=== PATIENT | male | born 2000 | race Two or more races ===

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

== ENCOUNTER 2021-03-18 01:00 | Emergency (ER) | payer OTHER, SELFPAY ==
[2021-03-18 01:11] VITALS: BP 130/66; PULSE 98; RESP 16; TEMP 36.9; O2SAT 95; BMI 25.0
--- NOTE | 2021-03-18 01:23 | ED_ITS ---
HPI - Abdominal Pain General Chief Complaint: Abdominal Pain Stated Complaint: food poisoning? Time Seen by Provider: 03/18/21 01:12 Source: patient Mode of arrival: ambulatory Limitations: no limitations History of Present Illness HPI narrative: 20-year-old male who presents emergency department for evaluation of abdominal pain, nausea and vomiting. The patient states that at 4:00 p.m. he ate a spicy, fish and potato dish that his mother had made for him. He states that he felt fine and then around 10:30 p.m. he a had a Shyann cheese steak with oconnell. Shortly after eating the Shyann cheese steak he began to feel ill. He states that he developed abdominal pain. He points to his epigastric area when asked to localize the pain . The pain pain was a constant, burning like sensation which was 3/10 at its worst. The pain eldridge then developed nausea and had 5 episodes of vomiting with no blood in the emesis. It is that he then began to get shaky all over, he felt lightheaded and dizzy, his face and neck got numb and hands began to cramp. The patient was then brought to the emergency department for evaluation. Related Data Previous Rx's Medication Instructions Recorded ondansetron 4 mg disintegrating 4 mg PO Q6H PRN 4 Days #20 tab 05/21/20 tablet ondansetron 4 mg disintegrating 4 mg PO Q6-8H PRN #14 tab 03/18/21 tablet Allergies Allergy/AdvReac Type Severity Reaction Status Date / Time No Known Allergies Allergy Verified 04/07/20 14:10 Review of Systems Review of Systems Yes all other systems are reviewed and are negative Physical Exam Vital Signs: Vital Signs: Last Vital Signs Temp 98.5 F 03/18/21 01:11 Pulse 98 03/18/21 01:11 Resp 16 03/18/21 01:11 BP 130/66 03/18/21 01:11 Pulse Ox 95 03/18/21 01:11 Body Mass Index 25.0 Const: General: cooperative and no acute distress Orientation/consciousness : oriented to person and oriented to place Limitations: no limitations HENMT: Head: Yes normal to inspection, Yes normocephalic and Yes atraumatic Ears: external ears normal General nose exam: Normal external nose present Face and sinus: Yes normal facial exam Mouth: Normal oral and palatal mucosa present Throat: Yes posterior oropharynx normal Eyes: General: appearance normal, both eyes and all related structures Pupils: Equal, round and reactive pupils present Neck: Neck: Yes normal visual inspection, Yes no lymphadenopathy, Yes trachea midline and Yes supple Chest: Chest palpation & inspection: normal inspection of the chest and normal palpation of entire chest wall Resp: Effort & Inspection: normal respiratory effort and able to speak in complete sentences Auscultation: clear to auscultation bilaterally Cardio: Rate: regular rate Rhythm: regular rhythm Heart sounds: S1 normal heart sound present, S2 normal heart sound present and no murmurs GI: Inspection: Yes normal to inspection Palpation (GI): Soft to palpation, Tenderness to palpation present (GI) in the epigastrum (Moderate) and no guard ing Auscultation: normal bowel sounds : General: Yes no CVA tenderness Back/Spine/Pelvis: Back: no CVA tenderness Skin: General skin exam: no rashes or lesions noted Neuro: General: oriented to person and oriented to place Cranial nerves: Yes CN's II-XII intact bilaterally and Yes Equal, round and reactive pupils present Cognition (Neuro): normal cognition Motor exam (neuro): 5/5 motor strength present throughout Extrem: General: Yes normal to inspection Psych: Appearance: grossly normal Speech and movement: Normal speech and movement present Affect: normal affect Attitude: cooperative Thought process: Normal thought process present Thought content: Normal thought content present Course Course Course Narrative: 20-year-old male who presents emergency department for evaluation of abdominal pain, nausea and vomiting that occurred around 10:30 p.m. after he ate a Shyann cheese steak with oconnell. The patient also developed numbness of his face, neck, lightheadedness, dizziness and cramping of his hands which is consistent with a hyperventilation/panic attack. Patient's vital signs were normal. Physical examination revealed epigastric tenderness. I ordered a CBC, CMP, lipase and urinalysis on the patient. The patient was treated with Toradol 30 mg IV, Zofran 4 mg IV normal saline IV x1 L. 0201: The patient did not receive his IV normal saline sent he requested that the IV be taken out after received the IV medications. He is feeling better. He was able to drink water without any vomiting. Patient's symptoms are consistent with gastritis and a panic attack. The patient will be discharged home. MDM - Abdominal Pain Lab Data Result diagrams: 03/18/21 01:32 03/18/21 01:32 Labs: Lab Results 03/18/21 03/18/21 Range/Units 01:32 01:32 WBC 6.3 (4.8-10.8) X10*3/uL RBC 4.84 (4.60-5.80) X10*6/uL Hgb 14.7 (14.0-18.0) g/dl Hct 42.8 (42-52) % MCV 88.4 (80-98) fL MCH 30.4 (27.0-33.0) pg MCHC 34.3 (31.0-36.0) g/dl RDW 11.8 (11.0-16.0) % Plt Count 180 (160-400) X10*3/uL MPV 9.7 (9.4-12.4) fL Immature Gran % (Auto) 0.2 (0.0-0.4) % Neut % (Auto) 73.4 H (45-73) % Lymph % (Auto) 16.9 L (20-40) % [place] % (Auto) 7.4 (2-11) % Eos % (Auto) 1.6 (0-4) % Baso % (Auto) 0.5 (0-2) % Lymph # (Auto) 1.1 L (1.2-4.9) X10*3/uL [place] # (Auto) 0.5 (0.1-1.2) X10*3/uL Eos # (Auto) 0.1 (0.0-0.4) X10*3/uL Baso # (Auto) 0.0 (0.0-0.2) X10*3/uL Abs Immat Gran (auto) 0.01 (0.00-0.03) X10*3/uL Absolute Neuts (auto) 4.7 (2.0-8.3) X10*3/uL Absolute Nucleated RBC 0.000 (0.0-0.012) X10*3/uL Nucleated RBC % (auto) 0.0 (0.0-0.2) /100WBC Sodium 139 (135-145) mmol/L Potassium 3.6 (3.3-5.1) mmol/L Chloride 103 (96-108) mmol/L Carbon Dioxide 27 (22-29) mmol/L Anion Gap 13 (12-20) BUN 13 (9-16) mg/dL Creatinine 1.13 (0.5-1.4) mg/dL Estim Creat Clear Calc 91.4 Estimated GFR > 60 Random Glucose 136 H D (60-115) mg/dL Calcium 9.7 (8.4-10.2) mg/dL Total Bilirubin 0.7 (0.0-1.0) mg/dL AST 21 D (5-37) U/L ALT 19 (0-40) U/L Alkaline Phosphatase 53 (39-117) U/L Total Protein 7.4 (6.5-8.0) g/dL Albumin 4.7 (3.5-5.0) g/dL Lipase 14 (8-78) U/L Discharge Plan Discharge Clinical Impression: Acute hyperventilation syndrome Gastritis Qualifiers: Gastritis type: unspecified gastritis Chronicity: acute Gastritis bleeding: without bleeding Qualified Code(s): K29.00 - Acute gastritis without bleeding Vomiting Qualifiers: Vomiting type: unspecified Vomiting Intractability: non-intractable Nausea presence: with nausea Qualified Code(s): R11.2 - Nausea with vomiting, unspecified Patient Disposition: Home, Self-Care Instructions: Hyperventilation (ED), Gastritis (ED) Additional Instructions: Your blood work was normal. Your symptoms are consistent with inflammation of your stomach (gastritis). You also had a panic attack/hyperventilation syndrome which caused you to feel lightheaded, dizzy, numb and gave you the cramping in your arms. Take Zofran ODT 4 mg pills, 1 pill dissolved in your mouth every 8 hours as needed for nausea and vomiting. Follow-up with your doctor in 2 days. Please return to the emergency department if your symptoms get worse or if you develop any symptoms that are concerning to you. Prescriptions: New ondansetron 4 mg tablet,disintegrating 4 mg PO Q6-8H PRN (Reason: nausea and vomiting) Qty: 14 RF: 0 No Action ondansetron 4 mg tablet,disintegrating 4 mg PO Q6H PRN (Reason: nausea and vomiting) 4 Days Qty: 20 RF: 0 PMFSH Past Medical History PMF Narrative: Past medical history: None. Past surgical history: None. Social history: The patient denies tobacco use. He denies alcohol use. The patient smokes 1 marijuana 1 to cigarette per day. He denies other drug use Medical History Healthy adult Social History Social History Alcohol intake: unknown Advance Directives: No Advance Directives Information Provided: Yes
[2021-03-18 01:35] LABS: MANUAL DIFF FLAG NO
[2021-03-18 01:36] LABS: Basophils Percent Auto 0.5 % (0-2); Eosinophils Absolute Auto 0.1 X10*3/uL (0.0-0.4); Eosinophils Percent Auto 1.6 % (0-4); Hematocrit 42.8 % (42-52); Hemoglobin 14.7 g/dl (14.0-18.0); Imm Gran Abs Auto 0.01 X10*3/uL (0.00-0.03); Imm Gran Pct Auto 0.2 % (0.0-0.4); Lymphocytes Absolute Auto 1.1 X10*3/uL (1.2-4.9); Lymphocytes Percent Auto 16.9 % (20-40); Mean Corpuscular HGB Conc 34.3 g/dl (31.0-36.0); Mean Corpuscular Hemoglobin 30.4 pg (27.0-33.0); Mean Corpuscular Volume 88.4 fL (80-98); Mean Platelet Volume 9.7 fL (9.4-12.4); Monocytes Absolute Auto 0.5 X10*3/uL (0.1-1.2); Monocytes Percent Auto 7.4 % (2-11); Neutrophils Absolute Auto 4.7 X10*3/uL (2.0-8.3); Neutrophils Percent Auto 73.4 % (45-73); Platelet Count 180 X10*3/uL (160-400); Red Blood Count 4.84 X10*6/uL (4.60-5.80); Red Cell Distribution Width 11.8 % (11.0-16.0); White Blood Count 6.3 X10*3/uL (4.8-10.8)
[2021-03-18] MEDS: ondansetron HCL 4 MG/2 ML VIAL IVPUSH (01:37)
[2021-03-18] MEDS: Ketorolac Tromethamine 15 MG/ML VIAL 30 MG IVPUSH (01:37)
[2021-03-18 01:52] LABS: Alanine Aminotransferase 19 U/L (0-40); Albumin Level 4.7 g/dL (3.5-5.0); Alkaline Phosphatase 53 U/L (39-117); Anion Gap 13 (12-20); Aspartate Amino Transferase 21 U/L (5-37); Bilirubin Total 0.7 mg/dL (0.0-1.0); Blood Urea Nitrogen 13 mg/dL (9-16); Calcium 9.7 mg/dL (8.4-10.2); Carbon Dioxide 27 mmol/L (22-29); Chloride 103 mmol/L (96-108); Creatinine Clr Calc Pharmacy 91.4; Estimated Glomerular Filt Rate > 60; Glucose Random 136 mg/dL (60-115); Lipase 14 U/L (8-78); Potassium 3.6 mmol/L (3.3-5.1); Sodium 139 mmol/L (135-145); Total Protein 7.4 g/dL (6.5-8.0)
[2021-03-18 02:00] VITALS: BP 106/67; PULSE 69; RESP 16; O2SAT 98
--- NOTE | 2021-03-18 02:06 | PC.NURSE ---
pt iv removed due to he is refusing iv fluid and the iv is painful. 2nd iv started and pt did not like that one either. provider at bedside medications received and ivf cancelled due to pt refusing.
== END 2021-03-18 02:24 | disposition home or self-care (01) ==
PROVIDERS: Emergency Provider Emergency Medicine Emergency Medical Services
DX: F45.8 Other somatoform disorders (principal); K29.00 Acute gastritis without bleeding; R11.2 Nausea with vomiting, unspecified
CPT/HCPCS: 36415; 80053; 83690; 85025; 96361; 96374; 96375; 99284; J1885; J2405

== ENCOUNTER 2024-12-01 23:46 | Emergency (ER) | payer OTHER, SELFPAY ==
--- NOTE | ~2024-12-01 | CT_ITS ---
CLINICAL HISTORY: diffuse abd pain, bloody diarrhea CT ABDOMEN AND PELVIS WITH CONTRAST Comparison: None provided Findings: No consolidation or effusion. No acute abnormalities in the solid organs. Tiny cyst or hemangioma in the right hepatic lobe. No large calcified gallstone. No urolithiasis. No AAA. There are numerous subcentimeter mesenteric lymph nodes throughout the abdomen. No bowel obstruction, ileus, pneumoperitoneum, or pneumatosis. No significant paracolic edema. The appendix measures 6.4-7.5 mm on axial image 476, series 4 and coronal image 46, series 7. The bones are intact. No free or loculated fluid collection. IMPRESSION: 1. Size criteria of the appendix suggests appendicitis in the appropriate clinical setting. No evidence for perforation or abscess. 2. Probable mesenteric adenitis. This document has been electronically signed by: Aleta Rowe DO on 12/02/2024 03:58:34
[2024-12-01 23:58] VITALS: BP 117/83; PULSE 65; RESP 16; TEMP 36.9; O2SAT 98; BMI 28.2
[2024-12-02 00:37] LABS: Hematocrit 43.1 % (42.0-52.0); Hemoglobin 15.1 g/dl (14.0-18.0); Imm Gran Abs Auto 0.00 X10*3/uL (0.00-0.03); Imm Gran Pct Auto 0.0 % (0.0-0.4); Lymphocytes Absolute Auto 1.1 X10*3/uL (1.2-4.9); MANUAL DIFF FLAG SCAN; Mean Corpuscular HGB Conc 35.0 g/dl (31.0-36.0); Mean Corpuscular Hemoglobin 30.2 pg (27.0-33.0); Mean Corpuscular Volume 86.2 fL (80.0-98.0); NRBC Abs Auto 0.000 X10*3/uL (0.0-0.012); NRBC Pct Auto 0.0 /100WBC (0.0-0.2); Platelet Count 155 X10*3/uL (160-400); Red Blood Count 5.00 X10*6/uL (4.60-5.80); SCAN SMEAR FLAG 1; White Blood Count 3.0 X10*3/uL (4.8-10.8)
[2024-12-02 00:51] LABS: Alanine Aminotransferase 30 U/L (0-40); Albumin Level 4.7 g/dL (3.5-5.0); Alkaline Phosphatase 56 U/L (39-117); Anion Gap 12 (12-20); Aspartate Amino Transferase 32 U/L (5-37); Blood Urea Nitrogen 14 mg/dL (9-16); Calcium 9.0 mg/dL (8.4-10.2); Carbon Dioxide 22 mmol/L (22-29); Chloride 107 mmol/L (96-108); Creatinine Clr Calc Pharmacy 94.8; Estimated Glomerular Filt Rate > 60; Lipase 28 U/L (8-78); Potassium 3.9 mmol/L (3.3-5.1); Sodium 137 mmol/L (135-145); Total Protein 7.6 g/dL (6.5-8.0)
[2024-12-02 01:09] VITALS: BP 121/80; RESP 18; TEMP 36.9
--- NOTE | 2024-12-02 02:23 | ED_ITS ---
HPI - Nausea/Vomiting/Diarrhea General Chief complaint: Nausea/Vomiting/Diarrhea Stated complaint: bleeding when urinating Time Seen by Provider: 12/02/24 02:10 Source: patient Mode of arrival: ambulatory Limitations: no limitations History of Present Illness ED Provider: Dr. Cailin Cox HPI Narrative: Patient comes to the emergency room complaining of diarrhea for 5-6 days. Patient states that he went to [place] with tn brittni montanez to celebrate their engagement, patient ate oysters. Patient states that since then he has been having bright red blood stool, denies rectal pain but now that he has been having so many bowel movements, the anal area hurts. Patient denies nausea or vomiting. Patient states that he feels a bit dry/dehydrated, states that he goes to the bathroom with large amount of diarrhea at least 5 times per day, up to 10 per day. Related Data Previous Rx's ?Medication ?Instructions ?Recorded ondansetron 4 mg disintegrating 4 mg PO Q6H PRN nausea and 05/21/20 tablet vomiting 4 days #20 tabs ondansetron 4 mg disintegrating 4 mg PO Q6-8H PRN naus ea and 03/18/21 tablet vomiting #14 tabs Allergies Allergy/AdvReac Type Severity Reaction Status Date / Time No Known Allergies Allergy Verified 12/02/24 00:02 Review of Systems 2 Review of Systems: Constitutional : No Weight loss, No Fever, No Chills, No Night Sweats, No Fatigue, No Malaise ENT/Mouth : No Hearing loss, No Ear Pain, No Nasal Congestion, No Sinus Pain, No Hoarseness, No sore throat, No Rhinorrhea, No Swallowing Difficulty Eyes: No Eye Pain, No Swelling, No Redness, No Foreign Body, No Discharge, No Vision Changes Cardiovascular : No Chest Pain, No SOB, No Dyspnea on Exertion, No Orthopnea, No Edema, No Palpitations Respiratory : No Cough, No Sputum, No Wheezing, No Smoke Exposure, No Dyspnea Gastrointestinal : No Nausea, No Vomiting, complaining of bloody diarrhea, diffuse abdominal discomfort Genitourinary : no irregular bleeding, No Dysuria, No Urinary Frequency, No Hematuria, No Urinary Incontinence, No Urgency, No Flank Pain, No Urinary Flow Changes, No Hesitancy Musculoskeletal : No joint pain, No Myalgias, No Joint Swelling Skin : No Skin Lesions, No rash Neuro : No Weakness, No Numbness, No Paresthesias, No Loss of Consciousness, No Dizziness, No Headache Psych : No Anxiety/Panic, No Depression, No SI/HI/AH/VH, No Social Issues, Heme/Lymph: No Bruising, No Bleeding,No Lymphadenopathy Endocrine : No Polyuria, No Polydipsia, No Temperature Intolerance [facility] Past Medical History Medical History Healthy adult Social History Social History Alcohol intake: never Patient Tobacco Use Status: Current everyday Tobacco user Substance Use Type: Marijuana Advance Directives: No Do you have a plan to hurt others: No Plan Physical Exam 2 Vital Signs: Vital Signs: Last Vital Signs Temp 98.5 F 12/02/24 01:09 Pulse 65 12/01/24 23:58 Resp 18 12/02/24 01:09 BP 121/80 12/02/24 01:09 Pulse Ox 98 12/01/24 23:58 O2 Del Method Room Air 12/01/24 23:58 BMI result Body Mass Index 28.2 Const: Other: Appearance: Alert. Oriented X3. No acute distress. Eyes: Pupils equal, round and reactive to light. ENT: Pharynx normal. Dry lips, dryish mucous membranes Neck: Normal inspection. Neck supple. No lymph nodes noted. No crepitus CVS: Normal heart rate and rhythm. Pulses normal. Normal S1 and S2 Respiratory: No respiratory distress. Breath sounds normal. No Wheezing. No rales Abdomen: Soft and mild discomfort to palpation in all quadrants, mostly cramping, no significant pain, no rebound or guarding, No rigidity. No distention. Digital rectal exam shows brown stool Skin: Skin warm and dry. Normal skin color. Normal skin turgor. Extremities: No lower extremity edema. No Lacerations. No Rash Neuro: Oriented X 3. No motor deficit. No sensory deficit. Moving all extremities. No slurred speech. CN 2 through 12 grossly intact Psych: calm, cooperative, normal affect Course Course Course Narrative: Patient receiving IV fluids, p.o. loperamide. CT scan pending. Medications Administered Discontinued Medications Generic Name Dose Route Start Last Admin Trade Name Freq PRN Reason Stop Dose Admin Lactated Ringer's 1,000 mls @ 999 mls/hr 12/02/24 02:30 12/02/24 03:08 Lr IV 12/02/24 03:30 999 mls/hr .Q1H1M FRANCES Administration Iohexol 85 ml 12/02/24 03:15 12/02/24 03:15 Iohexol 350 Mg/Ml 100 Ml Infus..Btl IV 12/02/24 03:16 85 ml ONCE ONE Administration Loperamide HCl 4 mg 12/02/24 02:17 12/02/24 03:07 Loperamide Hcl 2 Mg Capsule PO 12/02/24 02:18 4 mg ONCE ONE Administration Medical Decision Making Medical Decision Making [facility] Narrative: My interpretation of labs: Patient's white blood cell count 3.0, no significant abnormality in patient's hematology, normal chemistry, normal LFTs and lipase CT scan was read as possible appendicitis in the correct clinical setting. However, patient does not have any right lower quadrant pain, no epigastric or periumbilical pain. Patient is hungry. Clinically, patient does not have appendicitis. Patient has numerous subsegmental mesenteric lymph nodes throughout the abdomen. Likely reactive lymphadenopathy. Here in the emergency room, patient has not had any bowel movements. Patient states that after taking loperamide the diarrhea stopped I discussed with the patient that it is likely that the next few days he may still have a bit of diarrhea, however, patient instructed to take loperamide until kit hydrating with playing of IV fluids with electrolytes At this time, patient states that he has no abdominal pain at all, feels better and would like to be discharged home Differential Diagnosis Differential Diagnoses: The differential diagnosis associated with the presentation includes (As above) Admission/Observation Consideration of admission/observation: Escalation of care including admission/observation considered (Given patient's history and length of symptoms, observation was considered) Lab Data MDM Lab Attestation statement: I reviewed the patient's lab results. 12/02/24 00:29 12/02/24 00:29 Labs: Lab Results 12/02/24 Range/Units 00:29 WBC 3.0 L (4.8-10.8) X10*3/uL RBC 5.00 (4.60-5.80) X10*6/uL Hgb 15.1 (14.0-18.0) g/dl Hct 43.1 (42.0-52.0) % MCV 86.2 (80.0-98.0) fL MCH 30.2 (27.0-33.0) pg MCHC 35.0 (31.0-36.0) g/dl RDW 12.4 (11.0-16.0) % Plt Count 155 L (160-400) X10*3/uL MPV 9.3 L (9.4-12.4) fL Immature Gran % (Auto) 0.0 (0.0-0.4) % Neut % (Auto) 42.8 L (45-73) % Lymph % (Auto) 36.1 (20-40) % [place] % (Auto) 12.9 H (2-11) % Eos % (Auto) 7.9 H (0-4) % Baso % (Auto) 0.3 (0-2) % Lymph # (Auto) 1.1 L (1.2-4.9) X10*3/uL [place] # (Auto) 0.4 (0.1-1.2) X10*3/uL Eos # (Auto) 0.2 (0.0-0.4) X10*3/uL Baso # (Auto) 0.0 (0.0-0.2) X10*3/uL Abs Immat Gran (auto) 0.00 (0.00-0.03) X10*3/uL Absolute Neuts (auto) 1.3 L (2.0-8.3) x10*3/uL Absolute Nucleated RBC 0.000 (0.0-0.012) X10*3/uL Nucleated RBC % (auto) 0.0 (0.0-0.2) /100WBC Smear Tech's Comments VERIFIED Sodium 137 (135-145) mmol/L Potassium 3.9 (3.3-5.1) mmol/L Chloride 107 (96-108) mmol/L Carbon Dioxide 22 (22-29) mmol/L Anion Gap 12 (12-20) BUN 14 (9-16) mg/dL Creatinine 1.20 (0.5-1.4) mg/dL Estim Creat Clear Calc 94.8 Estimated GFR > 60 Random Glucose 89 (60-115) mg/dL Calcium 9.0 D (8.4-10.2) mg/dL Total Bilirubin 0.3 (0.0-1.0) mg/dL Direct Bilirubin 0.1 (0.0-0.5) mg/dL AST 32 (5-37) U/L ALT 30 (0-40) U/L Alkaline Phosphatase 56 (39-117) U/L Total Protein 7.6 (6.5-8.0) g/dL Albumin 4.7 (3.5-5.0) g/dL Lipase 28 (8-78) U/L Independent Interpretation I performed an independent interpretation of an: CT Scan Radiology Impression Discussion of test interpretation with radiology: I have reviewed the radiologist's reading. Radiologist Impression: Findings: No consolidation or effusion. No acute abnormalities in the solid organs. Tiny cyst or hemangioma in the right hepatic lobe. No large calcified gallstone. No urolithiasis. No AAA. There are numerous subcentimeter mesenteric lymph nodes throughout the abdomen. No bowel obstruction, ileus, pneumoperitoneum, or pneumatosis. No significant paracolic edema. The appendix measures 6.4-7.5 mm on axial image 476, series 4 and coronal image 46, series 7. The bones are intact. No free or loculated fluid collection. IMPRESSION: 1. Size criteria of the appendix suggests appendicitis in the appropriate clinical setting. No evidence for perforation or abscess. 2. Probable mesenteric adenitis. Critical Care Time Critical Care Time Critical Care Time: Yes Total Critical Care Time: 45 Attestation: I have personally provided critical care time. Time includes review of lab data, radiology results, discussion with consultants, and monitoring for potential decompensation. Intervention performed as documented. Discharge Plan Discharge Clinical Impression: Diarrhea, Acute dehydration, Viral gastroenteritis Patient Disposition: Home, Self-Care Instructions: Acute Abdominal Pain (ED), Acute Diarrhea (ED) Prescriptions: No Action ondansetron 4 mg tablet,disintegrating 4 mg PO Q6H PRN (Reason: nausea and vomiting) 4 Days Qty: 20 0RF ondansetron 4 mg tablet,disintegrating 4 mg PO Q6-8H PRN (Reason: nausea and vomiting) Qty: 14 0RF Print Language: Italian
[2024-12-02] MEDS: Lactated Ringers 1,000 ML 999 ML IV (03:08)
[2024-12-02] MEDS: iohexoL 350 MG/ML 100 ML INFUS..BTL 85 ML IV (03:15)
[2024-12-02 05:08] VITALS: BP 130/85; PULSE 71; RESP 16; TEMP 36.6; O2SAT 96
== END 2024-12-02 05:09 | disposition home or self-care (01) ==
PROVIDERS: Emergency Provider Emergency Medicine; PCP Internal Medicine
DX: A08.4 Viral intestinal infection, unspecified (principal); R19.7 Diarrhea, unspecified; E86.0 Dehydration; K62.5 Hemorrhage of anus and rectum; K62.89 Other specified diseases of anus and rectum
CPT/HCPCS: 36415; 74177; 80053; 82248; 83690; 85025; 96360; 99284; J7120; Q9967

== ENCOUNTER → 2024-12-02 02:20 | Outpatient (BNV) | payer OTHER, SELFPAY | PROVIDERS: Emergency Provider Emergency Medicine; PCP Internal Medicine; Visit Provider Radiology Diagnostic Radiology | DX: R10.84 Generalized abdominal pain (principal); R19.7 Diarrhea, unspecified | CPT/HCPCS: 74177 ==

== ENCOUNTER 2024-12-30 19:48 | Emergency (ER) | payer OTHER, SELFPAY ==
--- NOTE | 2024-12-30 20:11 | PC.NURSE ---
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
== END 2024-12-30 20:12 | disposition left against medical advice (07) ==
PROVIDERS: Emergency Provider Emergency Medicine
DX: Z53.21 Procedure and treatment not carried out due to patient leaving prior to being seen by health care provider (principal)